=== PATIENT | male | born 1955 | race Caucasian/White ===

== ENCOUNTER 2022-12-08 10:30 | Outpatient (CLI) | payer MEDICARE ==
--- NOTE | 2022-12-08 13:12 | XRAY Report ---
PROCEDURE: Chest 2 View X-Ray INDICATIONS: STAND CHEST XRAY ABNORMAL TECHNIQUE: 2 views of the chest were acquired. COMPARISON: None. FINDINGS: Surgical changes and devices: Partially seen thecal sac neural stimulator. Lungs and pleura: Questionable opacity in the right infrahilar region, possibly atelectasis or early airspace disease. No pleural effusions. No dense airspace disease elsewhere. Mediastinum: Mediastinal contours appear normal. Heart size is normal. Bones and chest wall: No suspicious bony lesions. Overlying soft tissues appear unremarkable. IMPRESSION: Questionable right infrahilar opacity, possibly atelectasis or early airspace disease. Consider futur e imaging surveillance to assess for resolution. Reviewed by: Mic Pineda MD on 12/08/2022 1:11 PM PDT Approved by: Mic Pineda MD on 12/08/2022 1:11 PM PDT Station ID: [id number]
== END 2022-12-08 10:45 | disposition home or self-care (01) ==
LOC: DI.N 10:30
PROVIDERS: ATTEND Family Medicine
DX: R91.8 Other nonspecific abnormal finding of lung field (principal)

== ENCOUNTER 2022-12-27 09:11 | Outpatient (CLI) | payer MEDICARE ==
--- NOTE | 2022-12-27 12:57 | CT Report ---
PROCEDURE: CHEST WO INDICATIONS: COPD TECHNIQUE: Noncontrast 1mm axial images were acquired from the pulmonary apices to the posterior costophrenic an gles. Axial 5 mm soft tissue kernel reconstructions were performed as well as 8 mm axial MIP and cor onal and sagittal 5 mm reformations. For radiation dose reduction, the following was used: automate d exposure control, adjustment of mA and/or kV according to patient size. COMPARISON: Chest x-ray 12/08/2022 FINDINGS: Image quality: Excellent. Lungs and pleura: Coarse and nodular biapical pleural plaquing with calcified spiculated nodule in th e right lung apex. Moderate to severe centrilobular and paraseptal edematous changes in upper and low er lobes. No acute airspace consolidations or groundglass opacities. Minor atelectasis at the left li ngular base containing a coarse calcification. No pleural effusions. No pneumothorax. There are sma ll scattered pleural and parenchymal calcifications in both lungs. No suspicious lung nodules or mass es. Mild central bronchial wall thickening bilaterally. No bronchiectasis. Mediastinum: Heart size is normal. Moderate to heavy coronary artery calcification. No pericardial ef fusion. No large vessel abnormality. No mediastinal adenopathy by size criteria. No anterior or post erior mediastinal mass. Normal esophagus without hiatal hernia Chest wall and lower neck: Thyroid is unremarkable. No axillary or supraclavicular adenopathy by size . Bones: There is an epidural nerve stimulator terminating in the mid thoracic thecal sac. There is sev ere degenerative disc and endplate disease in the upper lumbar spine. Deformities of remote healed ri ght rib fractures are present. Upper Abdomen: There is marked circumferential gastric wall thickening. Upper abdominal organs are ot herwise within normal limits. IMPRESSION: 1. Moderate to severe emphysema. No suspicious consolidations or masses. 2. Moderate to heavy coronary artery calcification. 3. Marked thickening of the gastric wall. Differential diagnosis includes severe gastritis and neopla sm. Upper endoscopy is recommended if not recently performed. Reviewed by: Narcisa Connolly MD on 12/27/2022 11:56 AM [facility] Approved by: Narcisa Connolly MD on 12/27/2022 11:56 AM [facility] Station ID: [id number]
== END 2022-12-27 09:12 | disposition home or self-care (01) ==
LOC: DI 09:11
PROVIDERS: ATTEND Family Medicine
DX: J43.9 Emphysema, unspecified (principal); I25.10 Atherosclerotic heart disease of native coronary artery without angina pectoris

== ENCOUNTER 2023-02-20 08:08 | Emergency (ER) | payer MEDICARE ==
--- NOTE | 2023-02-20 09:03 | ED Physician Documentation ---
PD HPI NVD - Stated complaint Stated Complaint: N/V/D - Chief complaint Chief Complaint: Abd Pain - History obtained from History obtained from: Patient - History of Present Illness Timing - onset: How many months ago (1) Timing - duration: Months (1) Timing - details: Gradual onset, Still present Associated symptoms: Abdominal pain (minimal cramping intermittently with BMs. No consistent pain.), Loss of appetite, Weight loss (he states about 15 lbs in the past month.). No: Fever, Near syncope / syncope Contributing factors: No: Sick contact, Bad food, Travel, Recent antibiotics Worsened by: Eating. No: Moving, Breathing, Palpation Similar symptoms before: No diagnosis (had CT abd that showed some gastric wall thickening c/w gastritis. Taking omprazole. referred to [facility] for consideration of egd. No dx for the diarrhea. He describes it as watery/loose, like "baby formula poop". no bloood. is odorous.) Recently seen: Clinic Review of Systems Constitutional: reports: Fatigue, Weight Loss. denies: Fever, Chills, Myalgias Nose: denies: Rhinorrhea / runny nose, Congestion Throat: denies: Sore throat Respiratory: denies: Cough GI: reports: Nausea, Diarrhea. denies: Vomiting, Bloody / black stool : denies: Dysuria, Frequency Neurologic: reports: Generalized weakness PD PAST MEDICAL HISTORY - Past Medical History Endocrine/Autoimmune: None GI: None - Present Medications Home Medications: Ambulatory Orders Medication Instructions Recorded Confirmed Citalopram [CeleXA] 10 mg PO DAILY 30 Days #30 tablet 02/20/23 Diphenoxylate/Atropine [Lomotil] 1 each PO BID PRN #20 tablet 02/20/23 Ondansetron Odt [Zofran] 4 mg TL Q6H PRN #20 tablet 02/20/23 - Allergies Allergies/Adverse Reactions: Allergies Allergy/AdvReac Type Severity Reaction Status Date / Time No Known Drug Allergies Allergy Verified 02/20/23 08:27 PD ED PE NORMAL - Vitals Vital signs reviewed: Yes - General General: Alert and oriented X 3, No acute distress, Well developed/nourished - Neck Neck: Supple, no meningeal sign, No adenopathy - Cardiac Cardiac: RRR (mild tachycardic), No murmur - Respiratory Respiratory: No respiratory distress, Clear bilaterally - Abdomen Abdomen: Normal bowel sounds, Soft, Non tender, Non distended, No organomegaly - Male Male : Deferred - Rectal Rectal: Deferred - Back Back: No CVA TTP - Derm Derm: Normal color Results - Vitals Vitals: Vital Signs - 24 hr 02/20/23 02/20/23 02/20/23 08:22 11:00 13:36 Temperature 36.3 C L Heart Rate 102 H 73 77 Respiratory 18 18 18 Rate Blood Pressure 130/78 145/103 H O2 Saturation 98 98 96 Oxygen O2 Source Room air - Labs Labs: Laboratory Tests 02/20/23 02/20/23 02/20/23 08:51 08:51 13:31 WBC 7.0 RBC 5.06 Hgb 17.2 Hct 49.0 MCV 96.8 H MCH 34.0 H MCHC 35.1 RDW 12.1 Plt Count 359 MPV 9.0 Neut # (Auto) 4.3 Lymph # (Auto) 1.8 [place] # (Auto) 0.7 Eos # (Auto) 0.1 Baso # (Auto) 0.1 Absolute Nucleated RBC 0.00 Nucleated RBC % 0.0 Sodium 138 Potassium 3.4 L Chloride 101 Carbon Dioxide 29 Anion Gap 8.0 BUN 10 Creatinine 1.1 Estimated GFR (MDRD) 66 L Glucose 136 H Calcium 9.5 Magnesium 1.4 L Total Bilirubin 0.8 AST 45 H ALT 28 Alkaline Phosphatase 85 Total Protein 6.6 Albumin 4.1 Globulin 2.5 Albumin/Globulin Ratio 1.6 Lipase 146 H Urine Color YELLOW Urine Clarity CLEAR Urine pH 5.5 Ur Specific [place] 1.010 Urine Protein NEGATIVE Urine Glucose (UA) NEGATIVE Urine Ketones NEGATIVE Urine Occult Blood TRACE-INTA Urine Nitrite NEGATIVE Urine Bilirubin NEGATIVE Urine Urobilinogen 0.2 (NORMAL) Ur Leukocyte Esterase NEGATIVE Ur Microscopic Review NOT INDICATED Urine Culture Comments NOT INDICATED - Rads (name of study) abd/pelvic CT Relevant Findings:: Prelim report reviewed (gastric wall thickening, nonspecific, consider gastritis. No other acute process. ) PD Medical Decision Making - ED course Complexity details: reviewed results (blood tests are okay except for low K and Mag, presume related to diarrhea persistnt. He did not have BM while here. CT report reviewed. ), considered differential (he did not have BM here. I feel need to start with stool studies toe howard for possible C Diff, which it sounds like, versus other infectious. Consider malabsoprtion as well. CT without finding of intestinal abnormal but does ave stomach wall thickening. Could use EGD for gastrum and colonoscopy.), d/w patient Departure - Departure Disposition: 01 Home, Self Care Clinical Impression: Diarrhea, Weight loss, Gastric wall thickening Condition: Stable Record reviewed to determine appropriate education?: Yes Follow-Up: [facility] [Provider Group] Prescriptions: Citalopram [CeleXA] 10 mg PO DAILY 30 Days #30 tablet Diphenoxylate/Atropine [Lomotil] 1 each PO BID PRN #20 tablet PRN Reason: Diarrhea Ondansetron Odt [Zofran] 4 mg TL Q6H PRN #20 tablet PRN Reason: Nausea / Vomiting Comments: In evaluating your ongoing diarrhea, some of the for steps is to look for persistent infection. Since you were not able to provide a stool here, we have sent you with a stool collection kit to obtain some at home. Bring it back to the lab to have the stool studies done. Follow-up with the primary care clinic. He also have some inflammation of the gastric/stomach lining that should be investigated further to ensure not a significant abnormality. Follow-up with the surgery office, call for an appointment for follow-up on this. Meanwhile continue with your acid reducing medicine such as pantoprazole or omeprazole. You can use antacids such as Maalox or Mylanta if needed. For your diarrhea, once you have obtained a good watery stool sample at home, then you can start with the antidiarrhea medicines. I also wrote for ondansetron/Zofran nausea medicine. I did write a refill for your citalopram as requested. [place] clinic can suffice. I sent your prescriptions to [facility] pharmacy. The studies we we will want on your stool are: 1. C. difficile by PCR 2. Stool culture 3. fecal calprotectin Forms: PCP List Discharge Date/Time: 02/20/23 14:07
[2023-02-20] MEDS ORDERED: SODIUM CHLORIDE 0.9% 1,000 ML IV STA (09:26)
[2023-02-20] MEDS ORDERED: ONDANSETRON 4 MG/2 ML VIAL IVP STA (09:26)
[2023-02-20 09:39] LABS: BASOPHILS # (AUTO) 0.1 10^3/uL (0.0-0.1); BASOPHILS % (AUTO) 0.7 %; EOSINOPHILS # (AUTO) 0.1 10^3/uL (0.0-0.7); HGB - HEMOGLOBIN 17.2 g/dL (14.0-18.0); LYMPHOCYTES # (AUTO) 1.8 10^3/uL (1.5-3.5); LYMPHOCYTES % (AUTO) 25.6 %; MEAN CORPUSCULAR HGB CONC 35.1 g/dL (32.0-36.0); MEAN CORPUSCULAR VOLUME 96.8 fL (80.0-94.0); MONOCYTES # (AUTO) 0.7 10^3/uL (0.0-1.0); MONOCYTES % (AUTO) 9.3 %; NEUTROPHILS # (AUTO) 4.3 10^3/uL (1.5-6.6); NEUTROPHILS % (AUTO) 61.8 %; PLT - PLATELET COUNT 359 10^3/uL (130-450); RED BLOOD COUNT 5.06 10^6/uL (4.70-6.10); RED CELL DISTRIBUTION WIDTH 12.1 % (12.0-15.0)
[2023-02-20 09:48] LABS: ALBUMIN 4.1 g/dL (3.2-5.5); ALBUMIN/GLOBULIN RATIO 1.6 (1.0-2.2); BILIRUBIN,TOTAL 0.8 mg/dL (0.2-1.0); CALCIUM 9.5 mg/dL (8.5-10.3); CREATININE 1.1 mg/dL (0.6-1.3); MAGNESIUM 1.4 mg/dL (1.7-2.3); POTASSIUM 3.4 mmol/L (3.5-4.5); TOTAL PROTEIN 6.6 g/dL (6.4-8.9)
[2023-02-20] MEDS ORDERED: MAGNESIUM SULFATE 2 GRAM 2 GM/50 ML BAG IV ONE (11:28)
--- NOTE | 2023-02-20 13:20 | CT Report ---
PROCEDURE: ABDOMEN/PELVIS W INDICATIONS: abd pain and diarrhea for 1-2 months CONTRAST: 100ml Omni 300 TECHNIQUE: After the administration of contrast, 5 mm thick sections acquired from the diaphragms to the symphys is. 5 mm thick coronal and sagittal reformats were acquired. For radiation dose reduction, the foll owing was used: automated exposure control, adjustment of mA and/or kV according to patient size. COMPARISON: FINDINGS: Image quality: Excellent. Lung bases and heart: Unremarkable. Liver: The liver has no mass or intrahepatic biliary ductal dilatation. Hepatic density is decreased consistent with hepatic steatosis. Gallbladder and biliary tree: The gallbladder is normal with no wall thickening or pericholecystic fl uid. No gallstones. Spleen: No splenomegaly. Pancreas: No pancreatic ductal dilation. Adrenals: No adrenal nodule. Kidneys and ureters: No hydronephrosis. No renal cystic lesion which requires follow up. No solid mas s. Bowel and peritoneum: No bowel distension. No pathologic free fluid. The appendix is normal. The grace laverne mucosa appears diffusely thickened unchanged compared to 12/27/2022, probably within normal limits but consider gastritis. Lymph nodes: No central or retroperitoneal adenopathy. Vessels: Vasculature has atherosclerotic calcifications. 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 PELVIS Reproductive organs: Unremarkable. Bladder: No abnormal wall thickening, accounting for underdistension. Pelvic lymph nodes: No pelvic adenopathy by size criteria. Bones: No aggressive osseous abnormality. Other: No significant ventral or inguinal hernia. IMPRESSION: 1. No acute abnormality of the abdomen or pelvis. 2. Nonspecific thickening of the gastric mucosa diffusely possibly due to gastritis. 3. Hepatic steatosis. Reviewed by: Yvon Shay on 02/20/2023 1:18 PM PDT Approved by: Yvon Shay on 02/20/2023 1:18 PM PDT Station ID: [id number]
[2023-02-20 13:37] LABS: BILIRUBIN,URINE NEGATIVE (NEGATIVE); GLUCOSE, URINE (UA) NEGATIVE (NEGATIVE); KETONES,URINE (UA) NEGATIVE (NEGATIVE); LEUKOCYTE ESTERASE, URINE NEGATIVE (NEGATIVE); NITRITE,URINE NEGATIVE (NEGATIVE); OCCULT BLOOD,URINE TRACE-INTA (NEGATIVE); PH,URINE 5.5 PH (5.0-7.5); PROTEIN,URINE NEGATIVE (NEGATIVE); UROBILINOGEN,URINE 0.2 (NORMAL) E.U./dL (NORMAL)
[2023-02-20 13:38] LABS: CLARITY,URINE CLEAR (CLEAR)
[2023-02-20] MEDS ORDERED: iohexoL-300 100 ML VIAL IVP ONE (13:38)
[2023-02-20 13:40] VITALS: BP 145/103; O2SAT 96
== END 2023-02-20 14:07 | disposition home or self-care (01) ==
LOC: ED 08:08
DX: R19.7 Diarrhea, unspecified (principal); R63.4 Abnormal weight loss; K92.89 Other specified diseases of the digestive system
CPT/HCPCS: 36415; 74177; 80053; 81003; 83690; 83735; 85025; 96361; 96374; 99283; 99284; Q9967; 81001; 87086

== ENCOUNTER 2023-02-22 08:00 | Outpatient (CLI) | payer MEDICARE | END 2023-02-22 23:59 | disposition home or self-care (01) | LOC: LAB.R 08:00 | PROVIDERS: ATTEND Emergency Medicine | DX: R19.7 Diarrhea, unspecified (principal) | CPT/HCPCS: 83993; 87045; 87046; 87427; 87493 ==

== ENCOUNTER 2023-03-23 10:40 | Day surgery (SDC) | payer MEDICARE ==
[2023-03-23] MEDS ORDERED: LACTATED RINGERS 1,000 ML IV ONE (10:45)
[2023-03-23] MEDS ORDERED: PROPOFOL 500 MG/50 ML 500 MG/50 ML VIAL ONE (12:05)
--- NOTE | 2023-03-23 12:12 | ANESTHESIA ---
Pre-Anesthesia VS, & Labs - Diagnosis thickened stomach, screening colonoscopy - Procedure EGD, Colonoscopy Vital Signs: Temp Pulse Resp BP Pulse Ox O2 Flow Rate 36.6 C 81 13 134/99 H 98 03/23/23 10:45 03/23/23 10:45 03/23/23 10:45 03/23/23 10:45 03/23/23 10:45 Height: 6 ft 2 in Weight (kg): 64.4 kg Body Mass Index: 18.2 BMI Classification: Underweight - NPO Other (6am last prep) Home Medications and Allergies Home Medications: Ambulatory Orders HYDROcod/ACETAM 5/325 [Tyler 5/325] 1 tab PO 03/22/23 Losartan/Hydrochlorothiazide [Losartan-Hctz 100-12.5 mg Tab] 1 tab PO DAILY 03/22/23 Omeprazole Magnesium [Prilosec] 40 mg PO 03/22/23 HYDROcod/ACETAM 5/325 [Tyler 5/325] 1 tab PO 03/22/23 Losartan/Hydrochlorothiazide [Losartan-Hctz 100-12.5 mg Tab] 1 tab PO DAILY 03/22/23 Omeprazole Magnesium [Prilosec] 40 mg PO 03/22/23 Allergies/Adverse Reactions: Allergies Allergy/AdvReac Type Severity Reaction Status Date / Time No Known Drug Allergies Allergy Verified 03/22/23 13:22 Anes History & Medical History - Anesthetic History Anesthesia Complications: reports: No previous complications - Medical History Cardiovascular: reports: Hypertension Pulmonary: reports: COPD Gastrointestinal: reports: None Urinary: reports: None Endocrine/Autoimmune: reports: None Smoking Status: Current every day smoker Psychosocial: reports: Alcohol (whiskey daily), Cannabis (occasionally) History of Cancer?: No - Surgical History Eyes Ears Nose Throat (EENT): reports: Tonsil/Adenoidectomy Exam General: Alert, Oriented x3 Dental: WNL Mouth Opening: Greater than 4 Fingerbreadths Neck Mobility: Normal Mallampati classification: II Thyromental Distance: greater than 6 cm Respiratory: Lungs clear Cardiovascular: Regular rate, Normal S1, Normal S2 Plan Anesthesia Type: Total IV Consent for Procedure(s) Verified and Reviewed: Yes Code Status: Attempt Resuscitation ASA classification: 3-Severe systemic disease Is this case an emergency?: No
[2023-03-23] MEDS ORDERED: PROPOFOL 200 MG/20 ML VIAL IVP ONE (13:53)
[2023-03-23] MEDS ORDERED: LACTATED RINGERS 50 ML IV ONE (14:15)
[2023-03-23 14:54] VITALS: BP 128/82; O2SAT 98
--- NOTE | 2023-03-24 13:30 | ANESTHESIA POST OP EVALUATION ---
Anesthesia Post Eval - Post Anesthesia Eval Vitals: Last Vital Signs Temp 36.2 C L 03/23/23 14:45 Pulse 68 03/23/23 14:45 Resp 17 03/23/23 14:45 BP 128/82 H 03/23/23 14:45 Pulse Ox 98 03/23/23 14:45 O2 Flow Rate CV Function Including HR & BP: Stable Pain Control: Satisfactory Nausea & Vomiting: Negative Mental Status: Baseline Respiratory Status: Airway Patent Hydration Status: Satisfactory Anesthesia Complications: None
== END 2023-03-23 10:41 | disposition home or self-care (01) ==
LOC: SDS 10:40
PROVIDERS: ATTEND Surgery
PROC: 0DB68ZX Excision of Stomach, Via Natural or Artificial Opening Endoscopic, Diagnostic (ICD-10-PCS; 2023-03-23)
PROC: 0DB28ZX Excision of Middle Esophagus, Via Natural or Artificial Opening Endoscopic, Diagnostic (ICD-10-PCS; 2023-03-23)
PROC: 0DB38ZX Excision of Lower Esophagus, Via Natural or Artificial Opening Endoscopic, Diagnostic (ICD-10-PCS; 2023-03-23)
PROC: 0DBH8ZX Excision of Cecum, Via Natural or Artificial Opening Endoscopic, Diagnostic (ICD-10-PCS; 2023-03-23)
PROC: 0DBN8ZZ Excision of Sigmoid Colon, Via Natural or Artificial Opening Endoscopic (ICD-10-PCS; 2023-03-23)
PROC: 0DBP8ZZ Excision of Rectum, Via Natural or Artificial Opening Endoscopic (ICD-10-PCS; 2023-03-23)
PROC: 0DB98ZX Excision of Duodenum, Via Natural or Artificial Opening Endoscopic, Diagnostic (ICD-10-PCS; principal; 2023-03-23 12:00)
PROC: 0DB78ZX Excision of Stomach, Pylorus, Via Natural or Artificial Opening Endoscopic, Diagnostic (ICD-10-PCS; 2023-03-23 12:00)
DX: Z12.11 Encounter for screening for malignant neoplasm of colon (principal); K31.89 Other diseases of stomach and duodenum; J43.9 Emphysema, unspecified; R10.13 Epigastric pain; K57.30 Diverticulosis of large intestine without perforation or abscess without bleeding; K62.1 Rectal polyp; D12.5 Benign neoplasm of sigmoid colon; K63.5 Polyp of colon; K63.89 Other specified diseases of intestine; R63.6 Underweight; Z68.1 Body mass index [BMI] 19.9 or less, adult; F17.200 Nicotine dependence, unspecified, uncomplicated
CPT/HCPCS: 43239; 45380; J7120

== ENCOUNTER 2023-07-24 10:31 | Emergency (ER) | payer MEDICARE, BC ==
[2023-07-24 11:06] LABS: BASOPHILS % (AUTO) 0.6 %; EOSINOPHILS # (AUTO) 0.2 10^3/uL (0.0-0.7); EOSINOPHILS % (AUTO) 2.8 %; HCT - HEMATOCRIT 46.4 % (42.0-52.0); HGB - HEMOGLOBIN 15.7 g/dL (14.0-18.0); LYMPHOCYTES # (AUTO) 2.7 10^3/uL (1.5-3.5); LYMPHOCYTES % (AUTO) 37.7 %; MEAN CORPUSCULAR HEMOGLOBIN 32.5 pg (27.0-31.0); MEAN CORPUSCULAR HGB CONC 33.8 g/dL (32.0-36.0); MEAN CORPUSCULAR VOLUME 96.1 fL (80.0-94.0); MEAN PLATELET VOLUME 8.4 fL (7.4-11.4); MONOCYTES # (AUTO) 0.6 10^3/uL (0.0-1.0); MONOCYTES % (AUTO) 8.6 %; NEUTROPHILS # (AUTO) 3.5 10^3/uL (1.5-6.6); NEUTROPHILS % (AUTO) 49.7 %; PLT - PLATELET COUNT 416 10^3/uL (130-450); RED BLOOD COUNT 4.83 10^6/uL (4.70-6.10); RED CELL DISTRIBUTION WIDTH 12.9 % (12.0-15.0); WHITE BLOOD COUNT 7.1 x10^3/uL (4.8-10.8)
[2023-07-24 11:24] LABS: ALBUMIN 3.9 g/dL (3.2-5.5); ALBUMIN/GLOBULIN RATIO 1.4 (1.0-2.2); BILIRUBIN,TOTAL 0.6 mg/dL (0.2-1.0); CALCIUM 8.9 mg/dL (8.5-10.3); POTASSIUM 3.8 mmol/L (3.5-4.5); TOTAL PROTEIN 6.6 g/dL (6.4-8.9)
--- NOTE | 2023-07-24 11:46 | XRAY Report ---
PROCEDURE: Chest 1V INDICATIONS: weight loss TECHNIQUE: One view of the chest was acquired. COMPARISON: 01/07/2023 FINDINGS: Surgical changes and devices: Neural stimulators are present. Lungs and pleura: No pleural effusions or pneumothorax. Lungs are clear. Mediastinum: Mediastinal contours appear normal. Heart size is normal. Bones and chest wall: No suspicious bony lesions. Overlying soft tissues appear unremarkable. IMPRESSION: No acute cardiopulmonary process. Reviewed by: Sandor Solomon MD on 07/24/2023 11:44 AM PST Approved by: Sandor Solomon MD on 07/24/2023 11:44 AM [facility] Station ID: [id number]
[2023-07-24 11:56] VITALS: O2SAT 95
[2023-07-24] MEDS: SODIUM CHLORIDE 0.9% 1,000 ML IV STA (12:07)
[2023-07-24 12:09] LABS: THYROID STIMULATING HORMONE 2.61 uIU/mL (0.34-5.60)
--- NOTE | 2023-07-24 12:53 | ED Physician Documentation ---
History of Present Illness - Stated complaint Stated Complaint: LOSS OF APPETITE - Chief complaint Chief Complaint: General - History obtained from History obtained from: Patient - Additonal information Additional information: Patient is a 68-year-old male presenting for evaluation of feeling fatigued, unintentional weight loss, decreased appetite for the last several months. Patient feels like this has been ongoing since the fall. He did have a colonoscopy and upper endoscopy at that time. He states that he will eat a quarter hamburger but then just loses his appetite does not feel like eating any further. He has been able to keep hydrated. Says his urine is usually clear. No fever, chest pain, shortness of air, change in cough. Does have a history of emphysema which she does not want his to know about and has been trying to cut down on his smoking. Does drink about 4 ounces of bourbon daily. Denies having alcohol withdrawal symptoms ever. No vomiting or diarrhea. He says he has not really followed up with his primary care doctor regarding his symptoms recently. Does not take any supplements.Takes citalopram.Feels like he has lost about 30 pounds in the last few months. Review of Systems Constitutional: denies: Fever Cardiac: denies: Chest pain / pressure Respiratory: denies: Dyspnea GI: denies: Abdominal Pain, Vomiting Neurologic: reports: Generalized weakness. denies: Headache PD PAST MEDICAL HISTORY - Past Medical History Past Medical History: Yes Cardiovascular: Hypertension Respiratory: COPD, Emphysema Endocrine/Autoimmune: None GI: None : None HEENT: Dental implants - Past Surgical History Past Surgical History: Yes HEENT: Tonsil/Adenoidectomy - Present Medications Home Medications: Ambulatory Orders Medication Instructions Recorded Confirmed Omeprazole Magnesium [Prilosec] 40 mg PO DAILY 03/22/23 07/24/23 Citalopram [CeleXA] 20 mg PO DAILY 07/24/23 07/24/23 - Allergies Allergies/Adverse Reactions: Allergies Allergy/AdvReac Type Severity Reaction Status Date / Time No Known Drug Allergies Allergy Verified 07/24/23 10:47 - Social History Does the pt smoke?: Yes Smoking Status: Current every day smoker Does the pt drink ETOH?: Yes Does the pt have substance abuse?: Yes Substance Use and Type: Marijuana - Immunizations Immunizations are current?: Yes - POLST Patient has POLST: No PD ED PE NORMAL - General General: Alert and oriented X 3, No acute distress, Well developed/nourished - HEENT HEENT: Atraumatic, Moist mucous membranes, Pharynx benign - Neck Neck: Supple, no meningeal sign - Cardiac Cardiac: RRR, Strong equal pulses - Respiratory Respiratory: No respiratory distress, Clear bilaterally - Abdomen Abdomen: Normal bowel sounds, Soft, Non tender, Non distended - Derm Derm: Warm and dry - Extremities Extremities: No edema - Neuro Neuro: Alert and oriented X 3, No motor deficit, Normal speech, Other (Normal gait) Results - Vitals Vitals: Vital Signs - 24 hr 07/24/23 07/24/23 07/24/23 10:42 11:50 13:00 Temperature 36.1 C L Heart Rate 110 H 87 81 Respiratory 20 13 15 Rate Blood Pressure 152/93 H 148/104 H 168/101 H O2 Saturation 96 95 95 Oxygen O2 Source Room air - EKG (time done) 1140 EKG releavant findings:: EKG personally interpreted by author of this note. Relevant findings are: Rate 95, normal sinus rhythm, No STEMI, QTc 438 - Labs Labs: Laboratory Tests 07/24/23 07/24/23 07/24/23 11:01 11:01 11:01 WBC 7.1 RBC 4.83 Hgb 15.7 Hct 46.4 MCV 96.1 H MCH 32.5 H MCHC 33.8 RDW 12.9 Plt Count 416 MPV 8.4 Neut # (Auto) 3.5 Lymph # (Auto) 2.7 [place] # (Auto) 0.6 Eos # (Auto) 0.2 Baso # (Auto) 0.0 Absolute Nucleated RBC 0.00 Nucleated RBC % 0.0 Sodium 136 Potassium 3.8 Chloride 100 L Carbon Dioxide 28 Anion Gap 8.0 BUN 7 Creatinine 1.0 Estimated GFR (MDRD) 74 L Glucose 146 H Calcium 8.9 Total Bilirubin 0.6 AST 73 H ALT 57 Alkaline Phosphatase 111 Total Protein 6.6 Albumin 3.9 Globulin 2.7 Albumin/Globulin Ratio 1.4 Lipase 138 H Vitamin B12 269 TSH 2.61 Free T4 Direct 0.71 PD Medical Decision Making - ED course Complexity details: reviewed results, d/w patient ED course: Patient is a 68-year-old presenting for evaluation of recent weight loss, decreased appetite and generalized weakness. Reports this has been going on for several months. Has had recent colonoscopy and EGD. Patient also had CT scans of his chest abdomen and pelvis that were all done last year throughout various ED encounters. Labs including CBC, chemistries, TSH were obtained and reviewed and without significant findings. EKG is nonischemic. Patient has no chest pain or shortness of air here. His symptoms have been ongoing for months that he has not followed up with PCP. Recommend continuing to cut down on tobacco and alcohol use as well as close follow-up with primary care provider for further evaluation of his symptoms. Departure - Departure Disposition: Home, Self Care Clinical Impression: Fatigue, Decreased appetite, Weight loss Condition: Stable Instructions: ED Weakness [facility]O Follow-Up: STEFANIE WHYTE MD [Physician No Access] - Comments: Your testing today is not revealing a cause for your symptoms. You may need further testing and should have close follow-up with your primary care provider. In the meanwhile I would recommend continuing to decrease your tobacco and a lcohol use. Continue to stay hydrated and you may want to consider utilizing nutritional supplements like protein shakes like boost to ensure you are getting adequate nutrition. Return to the emergency department if you develop pain or any other worsening symptoms. Forms: PCP List Discharge Date/Time: 07/24/23 13:06
[2023-07-24 13:08] VITALS: BP 168/101
== END 2023-07-24 13:06 | disposition home or self-care (01) ==
LOC: ED 10:31
DX: R53.83 Other fatigue (principal); R63.4 Abnormal weight loss; F17.200 Nicotine dependence, unspecified, uncomplicated; I10 Essential (primary) hypertension
CPT/HCPCS: 36415; 80053; 82607; 82746; 83690; 84439; 84443; 85025; 93005; 99283; 99284

== ENCOUNTER 2023-10-24 07:46 | Outpatient (CLI) | payer MEDICARE, BC ==
[2023-10-24 11:48] LABS: BASOPHILS # (AUTO) 0.1 10^3/uL (0.0-0.1); BASOPHILS % (AUTO) 0.9 %; EOSINOPHILS # (AUTO) 0.3 10^3/uL (0.0-0.7); EOSINOPHILS % (AUTO) 3.8 %; HCT - HEMATOCRIT 46.9 % (42.0-52.0); HGB - HEMOGLOBIN 15.5 g/dL (14.0-18.0); LYMPHOCYTES # (AUTO) 1.8 10^3/uL (1.5-3.5); LYMPHOCYTES % (AUTO) 27.5 %; MEAN CORPUSCULAR HEMOGLOBIN 31.9 pg (27.0-31.0); MEAN CORPUSCULAR VOLUME 96.5 fL (80.0-94.0); MEAN PLATELET VOLUME 9.9 fL (7.4-11.4); MONOCYTES # (AUTO) 0.8 10^3/uL (0.0-1.0); MONOCYTES % (AUTO) 11.5 %; NEUTROPHILS # (AUTO) 3.7 10^3/uL (1.5-6.6); PLT - PLATELET COUNT 375 10^3/uL (130-450); RED BLOOD COUNT 4.86 10^6/uL (4.70-6.10); RED CELL DISTRIBUTION WIDTH 12.1 % (12.0-15.0); WHITE BLOOD COUNT 6.5 x10^3/uL (4.8-10.8)
[2023-10-24 12:18] LABS: ALBUMIN 3.8 g/dL (3.2-5.5); ALBUMIN/GLOBULIN RATIO 1.4 (1.0-2.2); ALKALINE PHOSPHATASE 118 IU/L (42-121); ALT ALANINE AMINOTRANSFERASE 57 IU/L (10-60); AST ASPARTATE AMINOTRANSFERASE 61 IU/L (10-42); BUN - BLOOD UREA NITROGEN 22 mg/dL (6-20); CALCIUM 9.5 mg/dL (8.5-10.3); CARBON DIOXIDE - CO2 30 mmol/L (21-32); CHLORIDE 101 mmol/L (101-111); CHOL/HDL RATIO 2.4 (<5.0); CHOLESTEROL 164 mg/dL; CREATININE 1.1 mg/dL (0.6-1.3); GFR - MDRD 66 (>89); GLUCOSE 172 mg/dL (74-104); HDL CHOLESTEROL 68 mg/dL; LDL CHOLESTEROL,CALCULATED 49 mg/dL; LDL/HDL RATIO 0.7 (<3.6); POTASSIUM 4.1 mmol/L (3.5-4.5); SODIUM 136 mmol/L (135-145); TOTAL PROTEIN 6.5 g/dL (6.4-8.9); TRIGLYCERIDES 237 mg/dL (48-352); VLDL CHOLESTEROL 47 mg/dL
== END 2023-10-24 07:56 | disposition home or self-care (01) ==
LOC: LAB.N 07:46
DX: I10 Essential (primary) hypertension (principal); Z13.220 Encounter for screening for lipoid disorders
CPT/HCPCS: 36415; 80053; 80061; 83721; 85025

== ENCOUNTER 2023-11-01 09:13 | Outpatient (CLI) | payer BC, MEDICARE | END 2023-11-01 09:14 | disposition home or self-care (01) | LOC: LAB.N 09:13 | DX: D53.9 Nutritional anemia, unspecified (principal) | CPT/HCPCS: 36415; 82607; 82746 ==

== ENCOUNTER 2023-11-05 10:54 | Outpatient (CLI) | payer MEDICARE, BC ==
--- NOTE | 2023-11-05 14:03 | CT Report ---
PROCEDURE: Lung Cancer Screen INDICATIONS: SMOKING TECHNIQUE: A CT scan of the chest was performed. Intravenous contrast media was not administered. Images were re corded and evaluated at appropriate window settings. Reformats: axial MIP of the chest, coronal and s agittal. For radiation dose reduction, the following was used: automated exposure control, adjustment of mA and/or kV according to patient size. COMPARISON: CT 12/27/2022 FINDINGS: Image quality: Excellent. Prior cancer history: Unsure. Lungs and pleura: No pleural effusions. No pneumothorax. A few solid pulmonary micronodules, with lo w risk of malignancy. Calcified granuloma in the left lower lobe. Confluent centrilobular emphysema. Secretions within the central airways. Biapical scarring. Juxtapleural nodules with smooth margins, f avoring benign intrapulmonary lymph nodes. Mediastinum: Heart size is normal. No pericardial effusion. No large vessel abnormality. No mediastin al adenopathy by size criteria. Three vessel coronary artery calcifications. Chest wall and lower neck: Thyroid is unremarkable. No axillary or supraclavicular adenopathy by size . Bones: Multilevel degenerative disc disease, most prominent at L1-2 with severe disc height loss and opposing endplate sclerosis. Spinal stimulator leads terminates within the midthoracic spinal canal. Upper Abdomen: Unremarkable. IMPRESSION: Lung RAD: 2 - Benign. Recommendation: Continue annual screening in 12 Months with LDCT Non-Lung Significant Findings: Coronary Arterial Calcification - Moderate or Severe. Consider cardiol ogy referral. Reviewed by: Jeff Mendze MD on 11/05/2023 2:02 PM PDT Approved by: Jeff Mendez MD on 11/05/2023 2:02 PM PDT Station ID: [id number]
== END 2023-11-05 10:55 | disposition home or self-care (01) ==
LOC: DI 10:54
DX: Z12.2 Encounter for screening for malignant neoplasm of respiratory organs (principal); I25.10 Atherosclerotic heart disease of native coronary artery without angina pectoris; F17.200 Nicotine dependence, unspecified, uncomplicated

== ENCOUNTER 2024-01-01 09:59 | Outpatient (CLI) | payer MEDICARE, BC ==
[2024-01-01 13:00] LABS: BASOPHILS # (AUTO) 0.1 10^3/uL (0.0-0.1); BASOPHILS % (AUTO) 0.9 %; EOSINOPHILS # (AUTO) 0.1 10^3/uL (0.0-0.7); EOSINOPHILS % (AUTO) 2.4 %; HCT - HEMATOCRIT 45.5 % (42.0-52.0); HGB - HEMOGLOBIN 15.5 g/dL (14.0-18.0); LYMPHOCYTES # (AUTO) 1.9 10^3/uL (1.5-3.5); MEAN CORPUSCULAR HEMOGLOBIN 31.6 pg (27.0-31.0); MEAN CORPUSCULAR HGB CONC 34.1 g/dL (32.0-36.0); MEAN CORPUSCULAR VOLUME 92.9 fL (80.0-94.0); MEAN PLATELET VOLUME 10.2 fL (7.4-11.4); MONOCYTES # (AUTO) 0.6 10^3/uL (0.0-1.0); MONOCYTES % (AUTO) 11.3 %; NEUTROPHILS # (AUTO) 2.7 10^3/uL (1.5-6.6); NEUTROPHILS % (AUTO) 49.9 %; PLT - PLATELET COUNT 334 10^3/uL (130-450); WHITE BLOOD COUNT 5.5 x10^3/uL (4.8-10.8)
[2024-01-01 13:23] LABS: ALBUMIN 3.9 g/dL (3.2-5.5); ALBUMIN/GLOBULIN RATIO 1.4 (1.0-2.2); CALCIUM 9.3 mg/dL (8.5-10.3); CREATININE 1.1 mg/dL (0.6-1.3); POTASSIUM 4.4 mmol/L (3.5-4.5); TOTAL PROTEIN 6.7 g/dL (6.4-8.9)
== END 2024-01-01 10:00 | disposition home or self-care (01) ==
LOC: LAB.N 09:59
DX: R11.2 Nausea with vomiting, unspecified (principal)
CPT/HCPCS: 36415; 80053; 82150; 83690; 85025

== ENCOUNTER 2024-03-05 08:58 | Emergency (ER) | payer MEDICARE, BC ==
[2024-03-05] MEDS: SODIUM CHLORIDE 0.9% 1,000 ML IV STA (09:49)
[2024-03-05 10:04] LABS: BASOPHILS % (AUTO) 0.6 %; EOSINOPHILS # (AUTO) 0.1 10^3/uL (0.0-0.7); EOSINOPHILS % (AUTO) 1.3 %; HCT - HEMATOCRIT 39.6 % (42.0-52.0); LYMPHOCYTES # (AUTO) 1.4 10^3/uL (1.5-3.5); LYMPHOCYTES % (AUTO) 26.3 %; MEAN CORPUSCULAR HEMOGLOBIN 33.5 pg (27.0-31.0); MEAN CORPUSCULAR HGB CONC 35.4 g/dL (32.0-36.0); MEAN CORPUSCULAR VOLUME 94.7 fL (80.0-94.0); MEAN PLATELET VOLUME 9.7 fL (7.4-11.4); MONOCYTES # (AUTO) 0.5 10^3/uL (0.0-1.0); MONOCYTES % (AUTO) 9.7 %; NEUTROPHILS # (AUTO) 3.4 10^3/uL (1.5-6.6); NEUTROPHILS % (AUTO) 61.7 %; PLT - PLATELET COUNT 231 10^3/uL (130-450); RED BLOOD COUNT 4.18 10^6/uL (4.70-6.10); RED CELL DISTRIBUTION WIDTH 13.4 % (12.0-15.0); WHITE BLOOD COUNT 5.4 x10^3/uL (4.8-10.8)
[2024-03-05 10:07] LABS: INR 1.3 (0.8-1.2); PT - PROTHROMBIN TIME 13.7 secs (9.9-12.6)
[2024-03-05 10:38] LABS: ALBUMIN/GLOBULIN RATIO 1.2 (1.0-2.2); BILIRUBIN,TOTAL 1.5 mg/dL (0.2-1.0); CALCIUM 8.8 mg/dL (8.5-10.3); CREATININE 1.1 mg/dL (0.6-1.3); POTASSIUM 3.5 mmol/L (3.5-4.5); TOTAL PROTEIN 5.5 g/dL (6.4-8.9)
--- NOTE | 2024-03-05 12:24 | ED Physician Documentation ---
History of Present Illness - Stated complaint Stated Complaint: GI - Chief complaint Chief Complaint: Abd Pain - History obtained from History obtained from: Patient - Additonal information Additional information: The pt comes to the ED with CC of black stools for the past couple of days. He denies abdominal pain. He's had vomiting and diarrhea for months, with both PCP and GI involvement, but no answers. He is scheduled for a colonoscopy next week. He has not noticed any blood in his vomitus lately. He denies any fatigue or dyspnea. No fevers or chills. No bright red or maroon stools. No ingestion of Pepto-Bismol, iron tablets, or blueberries. Distant history of ulcer. He does drink alcohol daily. He states that every stool over the past couple of days has been black, and of a runny consistency. PD PAST MEDICAL HISTORY - Past Medical History Cardiovascular: Hypertension Respiratory: COPD, Emphysema Endocrine/Autoimmune: None GI: None : None HEENT: Dental implants - Past Surgical History Past Surgical History: Yes General: Colonoscopy, EGD HEENT: Tonsil/Adenoidectomy - Present Medications Home Medications: Ambulatory Orders Medication Instructions Recorded Confirmed Omeprazole Magnesium [Prilosec] 40 mg PO DAILY 03/22/23 07/24/23 Citalopram [CeleXA] 20 mg PO DAILY 07/24/23 07/24/23 Multivitamin with Folic Acid 400 mcg PO DAILY #30 tab 07/24/23 [Onevite Daily Multivitamin Tab] - Allergies Allergies/Adverse Reactions: Allergies Allergy/AdvReac Type Severity Reaction Status Date / Time No Known Drug Allergies Allergy Verified 03/05/24 09:08 - Social History Does the pt smoke?: Yes Smoking Status: Current every day smoker Does the pt drink ETOH?: Yes Does the pt have substance abuse?: Yes Substance Use and Type: Marijuana - Immunizations Immunizations are current?: Yes - POLST Patient has POLST: No PD ED PE NORMAL - Vitals Vital signs reviewed: Yes - General General: Alert and oriented X 3, No acute distress, Well developed/nourished - HEENT HEENT: Atraumatic, EOMI, Moist mucous membranes - Neck Neck: Supple, no meningeal sign - Cardiac Cardiac: RRR, No murmur - Respiratory Respiratory: No respiratory distress, Clear bilaterally - Abdomen Abdomen: Soft, Non tender, Non distended - Rectal Rectal: Other (Normal external exam, no residue. Normal digital rectal exam; no mass. No gross blood. Faint brownish stool on glove.) - Derm Derm: Normal color, Warm and dry, No rash - Extremities Extremities: No deformity, No edema - Neuro Neuro: Other (Alert, grossly intact) - Psych Psych: Normal mood, Normal affect Results - Vitals Vitals: Oxygen O2 Source Room air - Labs Labs: Microbiology 03/05/24 10:23 Occult Blood - Final Stool Laboratory Tests 03/05/24 03/05/24 03/05/24 09:40 09:40 09:40 WBC RBC Hgb Hct MCV MCH MCHC RDW Plt Count MPV Neut # (Auto) Lymph # (Auto) [place] # (Auto) Eos # (Auto) Baso # (Auto) Absolute Nucleated RBC Nucleated RBC % PT 13.7 H INR 1.3 H Sodium 137 Potassium 3.5 Chloride 98 L Carbon Dioxide 27 Anion Gap 12.0 BUN 9 Creatinine 1.1 Estimated GFR (MDRD) 66 L Glucose 187 H Calcium 8.8 Total Bilirubin 1.5 H AST 199 H ALT 141 H Alkaline Phosphatase 218 H Total Protein 5.5 L Albumin 3.0 L Globulin 2.5 Albumin/Globulin Ratio 1.2 Lipase 29 Blood Type Blood Type Recheck O POSITIVE Antibody Screen 03/05/24 03/05/24 09:49 09:49 WBC 5.4 RBC 4.18 L Hgb 14.0 Hct 39.6 L MCV 94.7 H MCH 33.5 H MCHC 35.4 RDW 13.4 Plt Count 231 MPV 9.7 Neut # (Auto) 3.4 Lymph # (Auto) 1.4 L [place] # (Auto) 0.5 Eos # (Auto) 0.1 Baso # (Auto) 0.0 Absolute Nucleated RBC 0.00 Nucleated RBC % 0.0 PT INR Sodium Potassium Chloride Carbon Dioxide Anion Gap BUN Creatinine Estimated GFR (MDRD) Glucose Calcium Total Bilirubin AST ALT Alkaline Phosphatase Total Protein Albumin Globulin Albumin/Globulin Ratio Lipase Blood Type O POSITIVE Blood Type Recheck Antibody Screen NEGATIVE PD Medical Decision Making - ED course Complexity details: reviewed results, re-evaluated patient, considered differential, d/w patient ED course: The pt had normal H/H, no concerning VS abnormalities, and guaiac negative stool. He was stable for d/c home. I am not sure what is causing the black coloration of his stools, but at this time, there is no evidence of an ongoing or significant GI bleed, as evidenced by the pt's lack of blood in vomitus and guaiac neg stool, as well as normal bloodwork. He is scheduled for scope next week and encouraged to keep that appointment. He is already on omeprazole, and should continue this. We have discussed the need for getting help with his alcohol abuse. Departure - Departure Disposition: 01 Home, Self Care Clinical Impression: Diarrhea Qualifiers: Diarrhea type: unspecified type Qualified Code(s): R19.7 - Diarrhea, unspecified Vomiting Qualifiers: Vomiting type: bilious vomiting Nausea presence: with nausea Qualified Code(s): R11.14 - Bilious vomiting Condition: Stable Instructions: Diarrhea, ED Nausea Vomiting Comments: Your blood work looks good and your stool blood test is negative. Is not clear what has been causing the black diarrhea you have been having, but there is no evidence of bleeding at this time. Please continue taking your omeprazole and please consider getting help with your alcohol use. You should call your primary doctor and senior sous chef to set up follow-up appointments. If you begin feeling lightheaded and short of breath and as though your stools seem to be more distinctly bloody, please return to the emergency department. Forms: PCP List Discharge Date/Time: 03/05/24 12:48
[2024-03-05 12:42] VITALS: BP 125/89; O2SAT 97
== END 2024-03-05 12:48 | disposition home or self-care (01) ==
LOC: ED 08:58
DX: I10 Essential (primary) hypertension (principal); J43.9 Emphysema, unspecified; Z96.5 Presence of tooth-root and mandibular implants; F17.200 Nicotine dependence, unspecified, uncomplicated; R11.14 Bilious vomiting; R19.7 Diarrhea, unspecified
CPT/HCPCS: 36415; 80053; 82272; 83690; 85025; 85610; 86850; 86900; 86901; 96360; 99284